=== PATIENT | male | born 1990 | race Hispanic/Latino ===

== ENCOUNTER 2020-03-16 11:26 | Emergency (ER) | payer SELFPAY ==
[2020-03-16] MEDS ORDERED: traMADol HCl 50 MG TAB ONE (12:12)
[2020-03-16] MEDS ORDERED: hydrOXYzine 25 MG TAB ONE (12:13)
[2020-03-16] MEDS ORDERED: Famotidine 20 MG TAB ONE (12:13)
[2020-03-16] MEDS ORDERED: methylPREDNISolone Sod Succ/PF 125 MG/2 ML VIAL ONE (12:13)
[2020-03-16] MEDS ORDERED: Bacitracin 1 PK ONE (12:15)
== END 2020-03-16 12:40 | disposition home or self-care (01) ==
LOC: BURERS 11:26
DX: T65.91XA Toxic effect of unspecified substance, accidental (unintentional), initial encounter (principal); L25.3 Unspecified contact dermatitis due to other chemical products; F17.210 Nicotine dependence, cigarettes, uncomplicated; F17.220 Nicotine dependence, chewing tobacco, uncomplicated
CPT/HCPCS: 96372; 99283; J2930

== ENCOUNTER 2020-07-09 20:41 | Emergency (ER) | payer SELFPAY | END 2020-07-09 21:09 | disposition home or self-care (01) | LOC: BURERS 20:41 | DX: F15.10 Other stimulant abuse, uncomplicated (principal); F14.10 Cocaine abuse, uncomplicated; F10.10 Alcohol abuse, uncomplicated; K64.9 Unspecified hemorrhoids; F17.210 Nicotine dependence, cigarettes, uncomplicated; F17.220 Nicotine dependence, chewing tobacco, uncomplicated | CPT/HCPCS: 99281 ==